=== PATIENT | male | born 1965 | race Caucasian/White ===

== ENCOUNTER 2016-11-04 07:07 | Day surgery (SDC) | payer OTHER ==
[~2016-11-04] VITALS: Ht 185.4 cm; Wt 140.7 kg
[~2016-11-04 07:07] MED LIST: CYMBALTA60 MG PO; FLUOXETINE HCL10 MG PO; HUMALOG100 UNIT/1 SC; LEVEMIR FL100 UNIT/1 SC; LYRICA75 MG PO; OXYCODONE-APAP1 EACH PO; REXULTI2 MG PO; TEMAZEPAM15 MG PO; TRAZODONE HCL150 MG PO
[2016-11-04 07:50] VITALS: BP 140/91
[2016-11-04 08:29] LABS: EOSINOPHIL (%) 2.3 % (0-5); EOSINOPHIL COUNT 0.2 K/uL (0-0.3); HEMATOCRIT 32.4 % (38.0-50.0); IMMATURE GRANULOCYTE (%) 0.3 % (0.0-0.7); IMMATURE GRANULOCYTE COUNT 0.2 K/uL; LYMPHOCYTE COUNT 1.3 K/uL (1.0-2.8); MCH 25.7 PG (29.0-34.0); MCHC 32.4 G/DL (30.0-36.0); MCV 79.4 FL (86-99); MEAN PLAT.VOLUME 9.5 uM^3 (9.0-12.4); MONOCYTE COUNT 0.7 K/uL (0-0.8); NEUTROPHIL (%) 70.7 % (45-76); NEUTROPHIL COUNT 5.3 K/uL (1.8-6.4); PLATELET COUNT 284 K/uL (156-360); RBC DIS.WIDTH-CV 14.1 % (11.8-14.6); RBC DIS.WIDTH-SD 39.5 % (39-53); RED BLOOD COUNT 4.08 M/uL (4.00-5.50); WHITE BLOOD COUNT 7.5 K/uL (4.1-10.2)
[2016-11-04 08:49] LABS: CHLORIDE 108 mEq/L (99-109); POTASSIUM 4.3 mEq/L (3.7-5.4); SODIUM 139 mEq/L (136-147)
[2016-11-04 08:51] LABS: GLUCOSE 87 mg/dL (70-99)
[2016-11-04 08:51] LABS: POINT-OF-CARE METER ID UU14174212
[2016-11-04 08:53] LABS: ANION GAP 9 MEQ/L (2-14); TOTAL BILIRUBIN 0.2 mg/dL (0.0-1.0)
[2016-11-04 08:55] LABS: GFR ESTIMATE (CALCULATED) 17 mL/min/
[2016-11-04 09:27] LABS: ALKALINE PHOSPHATASE 78 IU/L (3-129)
[2016-11-04 09:29] LABS: UREA NITROGEN (BUN) 45 mg/dL (9-23)
[2016-11-04 10:26] LABS: POINT-OF-CARE METER ID UU13113675
[2016-11-04 11:10] VITALS: BP 165/84
[2016-11-04 11:56] VITALS: BP 180/92
== END 2016-11-04 12:06 | disposition home or self-care (01) ==
LOC: SDC 07:07
PROVIDERS: Internal Medicine
DX: H43.12 Vitreous hemorrhage, left eye (principal); E11.3593 Type 2 diabetes mellitus with proliferative diabetic retinopathy without macular edema, bilateral; H33.42 Traction detachment of retina, left eye; E11.42 Type 2 diabetes mellitus with diabetic polyneuropathy; Z79.4 Long term (current) use of insulin; N18.9 Chronic kidney disease, unspecified; E11.22 Type 2 diabetes mellitus with diabetic chronic kidney disease; I12.9 Hypertensive chronic kidney disease with stage 1 through stage 4 chronic kidney disease, or unspecified chronic kidney disease
CPT/HCPCS: 80053; 82948; 85025; J0690; J2250; J2405; J3300

== ENCOUNTER 2017-06-09 07:28 | Day surgery (SDC) | payer OTHER ==
[~2017-06-09] VITALS: Ht 185.4 cm; Wt 140.7 kg
[~2017-06-09 07:28] MED LIST changes: +ADDERALL20 MG PO; +ATORVASTATIN CA20 MG PO; +GABAPENTIN400 MG PO; +METOPROLOL SUCC50 MG PO; +OLANZAPINE2.5 MG PO; +PLAVIX75 MG PO; +TRESIBA FL100 UNIT/1 SC
[2017-06-09 07:55] VITALS: BP 155/92
[2017-06-09 08:30] LABS: POINT-OF-CARE METER ID UU14174212
[2017-06-09 09:59] LABS: POINT-OF-CARE METER ID UU13113675
[2017-06-09 10:40] VITALS: BP 180/102
[2017-06-09 11:30] VITALS: BP 192/92
== END 2017-06-09 11:30 | disposition home or self-care (01) ==
LOC: SDC 07:28
PROVIDERS: Internal Medicine
DX: H43.12 Vitreous hemorrhage, left eye (principal); H33.22 Serous retinal detachment, left eye; I13.2 Hypertensive heart and chronic kidney disease with heart failure and with stage 5 chronic kidney disease, or end stage renal disease; I50.22 Chronic systolic (congestive) heart failure; E11.22 Type 2 diabetes mellitus with diabetic chronic kidney disease; N18.6 End stage renal disease; E11.21 Type 2 diabetes mellitus with diabetic nephropathy; G47.30 Sleep apnea, unspecified; Z86.73 Personal history of transient ischemic attack (TIA), and cerebral infarction without residual deficits; Z99.2 Dependence on renal dialysis; Z79.4 Long term (current) use of insulin; Z79.02 Long term (current) use of antithrombotics/antiplatelets
CPT/HCPCS: 82948; 87641; J0690; J2405; J3010; J3300

== ENCOUNTER 2017-06-15 10:32 | Emergency (ER) | payer OTHER ==
[~2017-06-15] VITALS: Ht 185.4 cm; Wt 139.5 kg
[2017-06-15 14:01] LABS: APPEARANCE CLOUDY-YELLOW; RED CELL COUNT 2000 /MM^3 (0-1); WHITE CELL COUNT 21528 /MM^3 (0-200.0)
[2017-06-15 14:11] LABS: MONONUCLEAR WBC'S 4 %; POLYNUCLEAR WBC'S 96 % (0-25); SYNOVIAL FLUID EOSINOPHILS 0 % (0-25)
[2017-06-15] MEDS ORDERED: PREDNISONE20 MG PO (14:49)
[2017-06-15] MEDS ORDERED: ROXICODONE5 MG PO (14:50)
[2017-06-15 15:15] VITALS: BP 120/77
== END 2017-06-15 15:16 | disposition home or self-care (01) ==
LOC: EME 10:32
PROVIDERS: Emergency Medicine
PROC: 0S9C3ZZ Drainage of Right Knee Joint, Percutaneous Approach (ICD-10-PCS; principal; 2017-06-15)
DX: M10.9 Gout, unspecified (principal); I12.9 Hypertensive chronic kidney disease with stage 1 through stage 4 chronic kidney disease, or unspecified chronic kidney disease; E11.22 Type 2 diabetes mellitus with diabetic chronic kidney disease; N18.9 Chronic kidney disease, unspecified; Z79.4 Long term (current) use of insulin; Z86.73 Personal history of transient ischemic attack (TIA), and cerebral infarction without residual deficits
CPT/HCPCS: 84157; 87205; 89051; 99281; 99284

== ENCOUNTER 2017-06-19 15:39 | Day surgery (SDC) | payer OTHER ==
[~2017-06-19 15:39] MED LIST changes: +PREDNISONE20 MG PO; +ROXICODONE5 MG PO
[2017-06-19 16:38] LABS: POINT-OF-CARE METER ID UU13113696
[2017-06-19 17:32] LABS: METH RESISTANT S AUREUS PCR NEGATIVE (NEGATIVE); PROBE CHECK PASS; SPECIMEN PROCESSING CONTROL PASS
== END 2017-06-19 17:55 | disposition home or self-care (01) ==
LOC: CATH 15:39
PROVIDERS: Surgery
PROC: B5131ZA Fluoroscopy of Right Jugular Veins using Low Osmolar Contrast, Guidance (ICD-10-PCS; principal; 2017-06-19)
PROC: 05PY03Z Removal of Infusion Device from Upper Vein, Open Approach (ICD-10-PCS; principal; 2017-06-19)
PROC: 05HM33Z Insertion of Infusion Device into Right Internal Jugular Vein, Percutaneous Approach (ICD-10-PCS; principal; 2017-06-19)
DX: T82.41XA Breakdown (mechanical) of vascular dialysis catheter, initial encounter (principal); I12.0 Hypertensive chronic kidney disease with stage 5 chronic kidney disease or end stage renal disease; E11.22 Type 2 diabetes mellitus with diabetic chronic kidney disease; N18.6 End stage renal disease; Z99.2 Dependence on renal dialysis; G47.30 Sleep apnea, unspecified; E78.00 Pure hypercholesterolemia, unspecified; Z86.73 Personal history of transient ischemic attack (TIA), and cerebral infarction without residual deficits
CPT/HCPCS: 82948; 87641; C1750; J0690; J1644; J2250; J3010; J7050; S0020

== ENCOUNTER 2017-06-26 11:58 | Day surgery (SDC) | payer OTHER ==
[2017-06-26 12:26] LABS: POINT-OF-CARE METER ID UU13113696
[2017-06-26 13:43] LABS: METH RESISTANT S AUREUS PCR NEGATIVE (NEGATIVE); PROBE CHECK PASS; SPECIMEN PROCESSING CONTROL PASS
== END 2017-06-26 14:10 | disposition home or self-care (01) ==
LOC: CATH 11:58 → SDC 07-02 11:24
PROVIDERS: Surgery
DX: T82.41XA Breakdown (mechanical) of vascular dialysis catheter, initial encounter (principal); N18.6 End stage renal disease; Z99.2 Dependence on renal dialysis
CPT/HCPCS: 82948; 87641; C1788; J0690; J1644; J2250; J3010; S0020

== ENCOUNTER → 2017-06-30 | Outpatient (CLI) | payer OTHER, MEDICARE | END | disposition home or self-care (01) | LOC: CDC | DX: Z01.810 Encounter for preprocedural cardiovascular examination (principal); I51.7 Cardiomegaly; R94.31 Abnormal electrocardiogram [ECG] [EKG] | CPT/HCPCS: 93000 ==

== ENCOUNTER 2017-07-02 11:17 | Day surgery (SDC) | payer OTHER ==
[~2017-07-02] VITALS: Ht 185.4 cm; Wt 140.1 kg
[2017-07-02 12:00] VITALS: BP 145/90
[2017-07-02 12:16] LABS: MCH 24.4 PG (29.0-34.0); MCHC 29.2 G/DL (30.0-36.0); MCV 83.3 FL (86-99); MEAN PLAT.VOLUME 10.3 uM^3 (9.0-12.4); PLATELET COUNT 225 K/uL (156-360); RBC DIS.WIDTH-CV 17.6 % (11.8-14.6); RBC DIS.WIDTH-SD 53.7 % (39-53); RED BLOOD COUNT 4.68 M/uL (4.00-5.50); WHITE BLOOD COUNT 9.7 K/uL (4.1-10.2)
[2017-07-02 12:35] LABS: ANION GAP 12 MEQ/L (2-14); CHLORIDE 99 MEQ/L (99-109); POTASSIUM 4.1 MEQ/L (3.7-5.4); SAMPLE HEMOLYSIS CHECK 0; SAMPLE ICTERIC CHECK 0; SAMPLE LIPEMIA CHECK 0; SODIUM 137 MEQ/L (136-147)
[2017-07-02 12:40] LABS: GFR ESTIMATE (CALCULATED) 10 mL/min/; GLUCOSE 212 mg/dL (70-99); UREA NITROGEN (BUN) 59 mg/dL (9-23)
[2017-07-02 15:52] LABS: POINT-OF-CARE METER ID UU13113675
[2017-07-02 16:23] VITALS: BP 139/82
[2017-07-02 17:00] VITALS: BP 160/90
== END 2017-07-02 17:12 | disposition home or self-care (01) ==
LOC: SDC 11:17
PROVIDERS: Surgery
DX: I12.0 Hypertensive chronic kidney disease with stage 5 chronic kidney disease or end stage renal disease (principal); E11.22 Type 2 diabetes mellitus with diabetic chronic kidney disease; N18.6 End stage renal disease; Z99.2 Dependence on renal dialysis; Z86.73 Personal history of transient ischemic attack (TIA), and cerebral infarction without residual deficits; E78.00 Pure hypercholesterolemia, unspecified; G47.33 Obstructive sleep apnea (adult) (pediatric); Z79.02 Long term (current) use of antithrombotics/antiplatelets; Z79.4 Long term (current) use of insulin
CPT/HCPCS: 80048; 82948; 85027; J0690; J1644; J2405; J2720; J3010

== ENCOUNTER 2017-07-12 22:13 | Emergency (ER) | payer OTHER ==
[~2017-07-12] VITALS: Ht 185.4 cm; Wt 138.6 kg
[2017-07-12 23:01] LABS: ADD MIUA? YES; BILIRUBIN NEGATIVE; BLOOD NEGATIVE; COLOR STRAW ((YELLOW)); GLUCOSE (STRIP) >=500; KETONES NEGATIVE; LEUKOCYTES NEGATIVE; NITRITE NEGATIVE; PROTEIN (STRIP) >=500; SPECIFIC GRAVITY 1.011 (1.000-1.030); UROBILINOGEN 0.2 MG/DL (0.2-1.0)
[2017-07-12 23:22] LABS: HEMATOCRIT 36.8 % (38.0-50.0); MCH 24.6 PG (29.0-34.0); MCHC 29.1 G/DL (30.0-36.0); MCV 84.6 FL (86-99); MEAN PLAT.VOLUME 9.9 uM^3 (9.0-12.4); PLATELET COUNT 232 K/uL (156-360); RBC DIS.WIDTH-CV 17.2 % (11.8-14.6); RBC DIS.WIDTH-SD 53.1 % (39-53); RED BLOOD COUNT 4.35 M/uL (4.00-5.50); WHITE BLOOD COUNT 6.1 K/uL (4.1-10.2)
[2017-07-12 23:32] LABS: CHLORIDE 106 mEq/L (99-109); POTASSIUM 4.5 mEq/L (3.7-5.4); SODIUM 141 mEq/L (136-147)
[2017-07-12 23:34] LABS: GLUCOSE 149 mg/dL (70-99)
[2017-07-12 23:35] LABS: ANION GAP 13 MEQ/L (2-14)
[2017-07-12 23:36] LABS: TOTAL BILIRUBIN 0.2 mg/dL (0.0-1.0)
[2017-07-12 23:37] LABS: ALKALINE PHOSPHATASE 81 IU/L (3-129)
[2017-07-12 23:38] LABS: RED BLOOD CELLS NONE SEEN /HPF (0-5); WHITE BLOOD CELLS NONE SEEN /HPF (0-5)
[2017-07-12 23:38] LABS: GFR ESTIMATE (CALCULATED) 7 mL/min/
[2017-07-12 23:39] LABS: UREA NITROGEN (BUN) 74 mg/dL (9-23)
[2017-07-12 23:39] LABS: BACTERIA RARE /HPF; CASTS NONE SEEN /LPF; CRYSTALS NONE SEEN; EPITHELIAL CELLS RARE /HPF; MUCUS NONE SEEN /LPF; UCUL ADDED? NO
[2017-07-13] MEDS ORDERED: DILAUDID2 MG PO (03:46)
[2017-07-13 04:18] VITALS: BP 164/98
== END 2017-07-13 04:20 | disposition home or self-care (01) ==
LOC: EME 22:13 → EXP 22:13
DX: R10.31 Right lower quadrant pain (principal); M25.551 Pain in right hip; N50.82 Scrotal pain; E11.9 Type 2 diabetes mellitus without complications; Z79.4 Long term (current) use of insulin; Z86.73 Personal history of transient ischemic attack (TIA), and cerebral infarction without residual deficits; Z88.8 Allergy status to other drugs, medicaments and biological substances
CPT/HCPCS: 72192; 73502; 76870; 80053; 81003; 85027; 99281; 99284; J2270; J3010

== ENCOUNTER 2017-07-16 11:52 | Day surgery (SDC) | payer OTHER ==
[~2017-07-16 11:52] MED LIST changes: +DILAUDID2 MG PO
[2017-07-16 12:28] LABS: POINT-OF-CARE METER ID UU13113696
== END 2017-07-16 15:50 | disposition home or self-care (01) ==
LOC: CATH 11:52
PROVIDERS: Surgery
DX: T82.41XA Breakdown (mechanical) of vascular dialysis catheter, initial encounter (principal); Y73.1 Therapeutic (nonsurgical) and rehabilitative gastroenterology and urology devices associated with adverse incidents; N18.6 End stage renal disease; Z99.2 Dependence on renal dialysis
CPT/HCPCS: 82948; C1750; C1894; J0690; J1644; J2250; J3010; S0020

== ENCOUNTER 2017-08-08 08:24 | Day surgery (SDC) | payer OTHER ==
[2017-08-08] MEDS ORDERED: AMBIEN10 MG PO (09:15)
[2017-08-08 09:23] LABS: POINT-OF-CARE METER ID UU13113696
[2017-08-08 09:59] LABS: POINT-OF-CARE METER ID UU13113696; POINT-OF-CARE USER ID HMLCJM07
[2017-08-08 10:17] LABS: POINT-OF-CARE METER ID UU13113696; POINT-OF-CARE USER ID HMLCJM07
[2017-08-08 10:37] LABS: METH RESISTANT S AUREUS PCR NEGATIVE (NEGATIVE)
[2017-08-08 10:39] LABS: PROBE CHECK PASS; SPECIMEN PROCESSING CONTROL PASS
[2017-08-08 10:52] LABS: POINT-OF-CARE METER ID UU13113819; POINT-OF-CARE USER ID 515036437
== END 2017-08-08 11:40 | disposition home or self-care (01) ==
LOC: CATH 08:24
PROVIDERS: Surgery
DX: T82.858A Stenosis of other vascular prosthetic devices, implants and grafts, initial encounter (principal); I12.0 Hypertensive chronic kidney disease with stage 5 chronic kidney disease or end stage renal disease; E11.22 Type 2 diabetes mellitus with diabetic chronic kidney disease; N18.6 End stage renal disease; Z99.2 Dependence on renal dialysis; E78.5 Hyperlipidemia, unspecified; Z86.73 Personal history of transient ischemic attack (TIA), and cerebral infarction without residual deficits; G47.30 Sleep apnea, unspecified; Y83.2 Surgical operation with anastomosis, bypass or graft as the cause of abnormal reaction of the patient, or of later complication, without mention of misadventure at the time of the procedure
CPT/HCPCS: 82948; 87641; C1725; C1769; C1894; J1644; J2250; J3010

== ENCOUNTER 2017-08-20 23:19 | Observation (INO) | payer OTHER ==
[~2017-08-20] VITALS: Ht 185.4 cm; Wt 144.7 kg
[~2017-08-20 23:19] MED LIST changes: +ADDERALL XR 2020 MG PO; -ADDERALL20 MG PO; +AMBIEN10 MG PO; -FLUOXETINE HCL10 MG PO; +FLUOXETINE HCL40 MG PO; -TRESIBA FL100 UNIT/1 SC; +TRESIBA FL200 UNIT/1 SC
[2017-08-21 00:43] LABS: EOSINOPHIL (%) 1.8 % (0-5); EOSINOPHIL COUNT 0.2 K/uL (0-0.3); HEMATOCRIT 36.4 % (38.0-50.0); IMMATURE GRANULOCYTE (%) 0.6 % (0.0-0.7); IMMATURE GRANULOCYTE COUNT 0.1 K/uL; INSTRUMENT ABS NEUTROPHIL CT 8.5 K/uL; LYMPHOCYTE COUNT 0.9 K/uL (1.0-2.8); MCH 24.3 PG (29.0-34.0); MCHC 29.4 G/DL (30.0-36.0); MCV 82.5 FL (86-99); NEUTROPHIL (%) 80.3 % (45-76); NEUTROPHIL COUNT 8.5 K/uL (1.8-6.4); PLATELET COUNT 220 K/uL (156-360); RBC DIS.WIDTH-CV 17.3 % (11.8-14.6); RBC DIS.WIDTH-SD 52.6 % (39-53); RED BLOOD COUNT 4.41 M/uL (4.00-5.50); WHITE BLOOD COUNT 10.6 K/uL (4.1-10.2)
[2017-08-21 00:53] LABS: CHLORIDE 100 mEq/L (99-109); POTASSIUM 4.4 mEq/L (3.7-5.4); SODIUM 136 mEq/L (136-147)
[2017-08-21 00:55] LABS: GLUCOSE 129 mg/dL (70-99)
[2017-08-21 00:56] LABS: ANION GAP 13 MEQ/L (2-14)
[2017-08-21 00:57] LABS: TOTAL BILIRUBIN 0.4 mg/dL (0.0-1.0)
[2017-08-21 00:58] LABS: ALKALINE PHOSPHATASE 88 IU/L (3-129)
[2017-08-21 00:59] LABS: GFR ESTIMATE (CALCULATED) 7 mL/min/
[2017-08-21 01:00] LABS: UREA NITROGEN (BUN) 57 mg/dL (9-23)
[2017-08-21 01:02] LABS: CREATINE KINASE 622 IU/L (1-294); LIPASE 14 U/L (1.0-51.0); TOTAL CK 622 IU/L (1-294)
[2017-08-21 01:09] LABS: CK-MB 6.3 ng/mL (0.0-4.9)
[2017-08-21 01:09] LABS: ADD MIUA? YES; BILIRUBIN NEGATIVE; BLOOD NEGATIVE; COLOR STRAW ((YELLOW)); GLUCOSE (STRIP) 150; KETONES NEGATIVE; LEUKOCYTES NEGATIVE; NITRITE NEGATIVE; PROTEIN (STRIP) >=500; SPECIFIC GRAVITY 1.012 (1.000-1.030); UROBILINOGEN 0.2 MG/DL (0.2-1.0)
[2017-08-21 01:10] LABS: TROP-I INTERPRETATION NEGATIVE; TROPONIN-I 0.11 ng/mL (0.0-0.30)
[2017-08-21 01:17] LABS: BACTERIA NONE SEEN /HPF; EPITHELIAL CELLS NONE SEEN /HPF; MUCUS NONE SEEN /LPF; WHITE BLOOD CELLS 0-5 /HPF (0-5)
[2017-08-21] MEDS ORDERED: CALCIUM ACETAT667 MG PO (01:37)
[2017-08-21] MEDS ORDERED: APRESOLINE25 MG PO (01:37)
[2017-08-21] MEDS ORDERED: HYDROCODON-ACE1 EAC9 PO (01:37)
[2017-08-21 04:51] VITALS: BP 163/94
[2017-08-21 07:13] VITALS: BP 135/86
[2017-08-21 07:16] LABS: TROP-I INTERPRETATION NEGATIVE; TROPONIN-I 0.09 ng/mL (0.0-0.30)
[2017-08-21 07:21] LABS: CREATINE KINASE 451 IU/L (1-294); HDL CHOLESTEROL 43 MG/DL (Desirable>=40); LDL CHOLESTEROL 80 mg/dL (Desirable<100); NON-HDL CHOLESTEROL 98 mg/dL (Desirable<160); TOTAL CHOLESTEROL 141 mg/dL (Desirable<200); TRIGLYCERIDES 92 MG/DL (Normal: <150)
[2017-08-21 08:04] LABS: POINT-OF-CARE METER ID UU13113831
[2017-08-21 13:00] VITALS: BP 137/89
[2017-08-21 13:02] LABS: POINT-OF-CARE METER ID UU13113700
[2017-08-21 15:27] LABS: TROP-I INTERPRETATION NEGATIVE
[2017-08-21 16:10] LABS: TROPONIN-I 0.08 ng/mL (0.0-0.30)
[2017-08-21 16:34] VITALS: BP 146/82
[2017-08-21 17:00] LABS: POINT-OF-CARE METER ID UU13113700
[2017-08-21 20:00] VITALS: BP 137/82
[2017-08-21 21:28] LABS: POINT-OF-CARE METER ID UU13113700
[2017-08-21 23:31] VITALS: BP 134/76
[2017-08-22 03:37] VITALS: BP 127/79
[2017-08-22 08:40] LABS: POINT-OF-CARE METER ID UU14162513
[2017-08-22 09:26] VITALS: BP 127/76
[2017-08-22 09:49] LABS: HBSG INDEX 0.13
[2017-08-22 11:22] VITALS: BP 134/80
[2017-08-22 12:54] LABS: POINT-OF-CARE METER ID UU14162513
[2017-08-22] MEDS ORDERED: GABAPENTIN400 MG PO (14:58)
[2017-08-22] MEDS ORDERED: CAPSAICIN57 GM TP (14:58)
[2017-08-24 21:41] LABS: POINT-OF-CARE METER ID UU14162513
== END 2017-08-22 16:13 | disposition home or self-care (01) ==
LOC: EME 23:19 → EDOF 08-21 03:07 → 5WEST 08-21 03:07 → ENRESERV 08-21 03:08 → 5WEST 08-21 04:32 → ENPENDDIS 08-22 → 5WEST 08-22 16:13
PROVIDERS: Internal Medicine; Internal Medicine Nephrology; Physician Assistant
PROC: 5A1D70Z Performance of Urinary Filtration, Intermittent, Less than 6 Hours Per Day (ICD-10-PCS; principal; 2017-08-21)
DX: R94.31 Abnormal electrocardiogram [ECG] [EKG] (principal); E11.40 Type 2 diabetes mellitus with diabetic neuropathy, unspecified; G89.4 Chronic pain syndrome; I12.0 Hypertensive chronic kidney disease with stage 5 chronic kidney disease or end stage renal disease; E11.22 Type 2 diabetes mellitus with diabetic chronic kidney disease; N18.6 End stage renal disease; Z99.2 Dependence on renal dialysis; D63.1 Anemia in chronic kidney disease; E78.5 Hyperlipidemia, unspecified; E66.01 Morbid (severe) obesity due to excess calories; Z79.891 Long term (current) use of opiate analgesic; Z79.4 Long term (current) use of insulin; Z88.8 Allergy status to other drugs, medicaments and biological substances
CPT/HCPCS: 71020; 80053; 80061; 81003; 82550; 82550 91; 82553; 82948; 83690; 84484; 85025; 87340; 87502; 87651 90; 93005; 93306; 99281; 99285; G0257; G0378; J1644; J2270; J3010

== ENCOUNTER → 2017-10-08 | Outpatient (CLI) | payer OTHER ==
[~2017-10-08] MED LIST changes: +APRESOLINE25 MG PO; +CALCIUM ACETAT667 MG PO; +CAPSAICIN57 GM TP; +HYDROCODON-ACE1 EAC9 PO
== END | disposition home or self-care (01) ==
LOC: AMB 09-26 08:30
PROC: 05PYX3Z Removal of Infusion Device from Upper Vein, External Approach (ICD-10-PCS; principal; 2017-10-08)
DX: N18.6 End stage renal disease (principal); Z99.2 Dependence on renal dialysis

== ENCOUNTER 2017-10-19 04:03 | Observation (INO) | payer OTHER ==
[~2017-10-19] VITALS: Ht 185.4 cm; Wt 138.1 kg
[2017-10-19 05:36] LABS: HEMATOCRIT 32.3 % (38.0-50.0); HEMOGLOBIN 10.2 G/DL (12.5-16.6); MCH 26.8 PG (29.0-34.0); MCHC 31.6 G/DL (30.0-36.0); PLATELET COUNT 270 K/uL (156-360); RBC DIS.WIDTH-CV 16.7 % (11.8-14.6); RBC DIS.WIDTH-SD 51.7 % (39-53); WHITE BLOOD COUNT 7.5 K/uL (4.1-10.2)
[2017-10-19 05:38] LABS: CHLORIDE 98 mEq/L (99-109); POTASSIUM 3.8 mEq/L (3.7-5.4); SODIUM 138 mEq/L (136-147)
[2017-10-19 05:43] LABS: GLUCOSE 264 mg/dL (70-99)
[2017-10-19 05:44] LABS: GFR ESTIMATE (CALCULATED) 6 mL/min/ (58.99-99999)
[2017-10-19 05:52] LABS: TROP-I INTERPRETATION NEGATIVE; TROPONIN-I 0.06 ng/mL (0.0-0.30)
[2017-10-19 05:53] LABS: CREATININE 9.4 mg/dL (0.6-1.3); UREA NITROGEN (BUN) 55 mg/dL (9-23)
[2017-10-19 08:09] VITALS: BP 175/105
[2017-10-19 11:33] VITALS: BP 133/83
[2017-10-19] MEDS ORDERED: EFFEXOR37.5 MG PO (11:52)
[2017-10-19] MEDS ORDERED: PROZAC40 MG PO (11:53)
[2017-10-19] MEDS ORDERED: LASIX80 MG PO (11:56)
[2017-10-19 13:04] LABS: TROP-I INTERPRETATION NEGATIVE; TROPONIN-I 0.07 ng/mL (0.0-0.30)
[2017-10-19 13:22] LABS: HDL CHOLESTEROL 28 MG/DL (Desirable>=40); LDL CHOLESTEROL 87 mg/dL (Desirable<100); NON-HDL CHOLESTEROL 120 mg/dL (Desirable<160); TOTAL CHOLESTEROL 148 mg/dL (Desirable<200); TRIGLYCERIDES 164 MG/DL (Normal: <150)
[2017-10-19 16:41] VITALS: BP 136/70
[2017-10-19 18:18] LABS: TROP-I INTERPRETATION NEGATIVE; TROPONIN-I 0.06 ng/mL (0.0-0.30)
[2017-10-19 20:00] VITALS: BP 132/71
[2017-10-19 23:41] VITALS: BP 122/68
[2017-10-20 04:00] VITALS: BP 148/78
[2017-10-20 07:50] VITALS: BP 136/77
[2017-10-20 09:39] LABS: HEMATOCRIT 33.9 % (38.0-50.0); HEMOGLOBIN 10.3 G/DL (12.5-16.6); MCH 26.6 PG (29.0-34.0); MCHC 30.4 G/DL (30.0-36.0); MCV 87.6 FL (86-99); PLATELET COUNT 255 K/uL (156-360); RBC DIS.WIDTH-CV 17.1 % (11.8-14.6); RBC DIS.WIDTH-SD 53.9 % (39-53); RED BLOOD COUNT 3.87 M/uL (4.00-5.50); WHITE BLOOD COUNT 7.7 K/uL (4.1-10.2)
[2017-10-20 09:56] LABS: HEMOGLOBIN A1c (GLYCOHEMOGLOB) 6.8 % (Below 5.7)
[2017-10-20 10:25] LABS: CHLORIDE 98 MEQ/L (99-109); GFR ESTIMATE (CALCULATED) 6 mL/min/ (58.99-99999); SODIUM 138 MEQ/L (136-147); UREA NITROGEN (BUN) 70 mg/dL (9-23)
[2017-10-20 10:26] LABS: GLUCOSE 98 mg/dL (70-99); POTASSIUM 4.7 MEQ/L (3.7-5.4)
[2017-10-20 12:16] VITALS: BP 167/78
[2017-10-20] MEDS ORDERED: GABAPENTIN400 MG PO (13:52)
[2017-10-20] MEDS ORDERED: TRAMADOL HCL50 MG PO (13:52)
== END 2017-10-20 20:58 | disposition home or self-care (01) ==
LOC: EME 04:03 → 5WEST 05:56 → EDOF 05:56 → ENRESERV 05:59 → 5WEST 07:25
PROVIDERS: Emergency Medicine; Hospitalist; Physician Assistant Medical
PROC: 5A1D70Z Performance of Urinary Filtration, Intermittent, Less than 6 Hours Per Day (ICD-10-PCS; principal; 2017-10-20)
DX: R07.89 Other chest pain (principal); I13.2 Hypertensive heart and chronic kidney disease with heart failure and with stage 5 chronic kidney disease, or end stage renal disease; I50.9 Heart failure, unspecified; N18.6 End stage renal disease; Z99.2 Dependence on renal dialysis; E11.22 Type 2 diabetes mellitus with diabetic chronic kidney disease; D63.1 Anemia in chronic kidney disease; G89.4 Chronic pain syndrome; G47.33 Obstructive sleep apnea (adult) (pediatric); Z79.4 Long term (current) use of insulin; E78.5 Hyperlipidemia, unspecified; Z91.19 Patient's noncompliance with other medical treatment and regimen; E11.49 Type 2 diabetes mellitus with other diabetic neurological complication; Z88.8 Allergy status to other drugs, medicaments and biological substances; Z79.82 Long term (current) use of aspirin; E66.01 Morbid (severe) obesity due to excess calories; Z68.41 Body mass index [BMI] 40.0-44.9, adult
CPT/HCPCS: 71046; 80048; 80061; 82948; 83036; 83880; 84484; 85027; 93005; G0257; G0378; J1644; J1815; J2270; J2405

== ENCOUNTER 2017-11-08 03:49 | Inpatient (IN) | payer OTHER ==
[~2017-11-08] VITALS: Ht 185.4 cm; Wt 144.1 kg
[~2017-11-08 03:49] MED LIST changes: +EFFEXOR37.5 MG PO; +LASIX80 MG PO; +PROZAC40 MG PO; +TRAMADOL HCL50 MG PO
[2017-11-08 04:30] LABS: HEMATOCRIT 28.8 % (38.0-50.0); HEMOGLOBIN 9.1 G/DL (12.5-16.6); MCH 27.2 PG (29.0-34.0); MCHC 31.6 G/DL (30.0-36.0); PLATELET COUNT 275 K/uL (156-360); RBC DIS.WIDTH-CV 16.1 % (11.8-14.6); RBC DIS.WIDTH-SD 49.8 % (39-53); RED BLOOD COUNT 3.35 M/uL (4.00-5.50); WHITE BLOOD COUNT 7.9 K/uL (4.1-10.2)
[2017-11-08 04:40] LABS: CHLORIDE 102 mEq/L (99-109); POTASSIUM 3.4 mEq/L (3.7-5.4); SODIUM 137 mEq/L (136-147)
[2017-11-08 04:42] LABS: GLUCOSE 134 mg/dL (70-99)
[2017-11-08 04:46] LABS: CREATININE 9.7 mg/dL (0.6-1.3); GFR ESTIMATE (CALCULATED) 6 mL/min/ (58.99-99999); UREA NITROGEN (BUN) 69 mg/dL (9-23)
[2017-11-08 04:51] LABS: TROP-I INTERPRETATION NEGATIVE
[2017-11-08 07:36] LABS: TROP-I INTERPRETATION NEGATIVE; TROPONIN-I 0.08 ng/mL (0.0-0.30)
[2017-11-08 09:22] LABS: MAGNESIUM 2.4 mg/dL (1.3-2.7)
[2017-11-08] MEDS ORDERED: ROPINIROLE HC0.25 MG PO (11:07)
[2017-11-08] MEDS ORDERED: VALSARTAN320 MG PO (11:08)
[2017-11-08 18:00] VITALS: BP 135/81
[2017-11-08 20:08] VITALS: BP 124/69
[2017-11-08 23:55] VITALS: BP 132/75
[2017-11-09 04:00] VITALS: BP 147/83
[2017-11-09 05:45] LABS: HEMATOCRIT 32.3 % (38.0-50.0); MCH 27.2 PG (29.0-34.0); MCV 87.8 FL (86-99); PLATELET COUNT 329 K/uL (156-360); RBC DIS.WIDTH-CV 16.1 % (11.8-14.6); RBC DIS.WIDTH-SD 51.4 % (39-53); RED BLOOD COUNT 3.68 M/uL (4.00-5.50); WHITE BLOOD COUNT 7.7 K/uL (4.1-10.2)
[2017-11-09 06:06] LABS: CHLORIDE 98 MEQ/L (99-109); CREATININE 7.3 MG/DL (0.6-1.3); GFR ESTIMATE (CALCULATED) 10 mL/min/ (58.99-99999); GLUCOSE 43 mg/dL (70-99); POTASSIUM 3.4 MEQ/L (3.7-5.4); SODIUM 140 MEQ/L (136-147); UREA NITROGEN (BUN) 41 mg/dL (9-23)
[2017-11-09 08:15] VITALS: BP 163/103
[2017-11-09 11:30] VITALS: BP 135/87
[2017-11-09 15:29] VITALS: BP 119/71
[2017-11-09 20:00] VITALS: BP 128/71
[2017-11-10 01:19] VITALS: BP 115/71
[2017-11-10 04:54] VITALS: BP 117/70
[2017-11-10 05:40] LABS: BASOPHIL (%) 0.4 % (0-1); EOSINOPHIL (%) 4.1 % (0-5); EOSINOPHIL COUNT 0.3 K/uL (0-0.3); HEMATOCRIT 29.3 % (38.0-50.0); HEMOGLOBIN 9.1 G/DL (12.5-16.6); IMMATURE GRANULOCYTE (%) 0.4 % (0.0-0.7); LYMPHOCYTE (%) 20.5 % (15-42); LYMPHOCYTE COUNT 1.5 K/uL (1.0-2.8); MCH 26.7 PG (29.0-34.0); MCHC 31.1 G/DL (30.0-36.0); MCV 85.9 FL (86-99); MONOCYTE (%) 10.3 % (3-12); MONOCYTE COUNT 0.7 K/uL (0-0.8); NEUTROPHIL (%) 64.3 % (45-76); NEUTROPHIL COUNT 4.6 K/uL (1.8-6.4); PLATELET COUNT 291 K/uL (156-360); RBC DIS.WIDTH-CV 16.1 % (11.8-14.6); RBC DIS.WIDTH-SD 50.2 % (39-53); RED BLOOD COUNT 3.41 M/uL (4.00-5.50); WHITE BLOOD COUNT 7.1 K/uL (4.1-10.2)
[2017-11-10 06:05] LABS: CHLORIDE 98 MEQ/L (99-109); CREATININE 8.7 MG/DL (0.6-1.3); GFR ESTIMATE (CALCULATED) 8 mL/min/ (58.99-99999); GLUCOSE 67 mg/dL (70-99); POTASSIUM 3.9 MEQ/L (3.7-5.4); SODIUM 137 MEQ/L (136-147); UREA NITROGEN (BUN) 50 mg/dL (9-23)
[2017-11-10 08:08] VITALS: BP 126/75
[2017-11-10 12:15] VITALS: BP 116/70
[2017-11-10 15:50] VITALS: BP 115/65
[2017-11-10 19:34] VITALS: BP 122/76
[2017-11-11 00:54] VITALS: BP 115/68
[2017-11-11 03:33] VITALS: BP 126/77
[2017-11-11 05:36] LABS: HEMATOCRIT 30.6 % (38.0-50.0); HEMOGLOBIN 9.2 G/DL (12.5-16.6); MCH 26.4 PG (29.0-34.0); MCHC 30.1 G/DL (30.0-36.0); MCV 87.7 FL (86-99); PLATELET COUNT 280 K/uL (156-360); RBC DIS.WIDTH-CV 16.2 % (11.8-14.6); RBC DIS.WIDTH-SD 51.7 % (39-53); RED BLOOD COUNT 3.49 M/uL (4.00-5.50); WHITE BLOOD COUNT 6.4 K/uL (4.1-10.2)
[2017-11-11 06:09] LABS: ALBUMIN 3.3 G/DL (3.2-4.8); CHLORIDE 98 MEQ/L (99-109); GFR ESTIMATE (CALCULATED) 7 mL/min/ (58.99-99999); PHOSPHORUS 7.4 mg/dL (2.5-4.9); POTASSIUM 4.2 MEQ/L (3.7-5.4); SODIUM 137 MEQ/L (136-147); UREA NITROGEN (BUN) 62 mg/dL (9-23)
[2017-11-11 06:11] LABS: GLUCOSE 107 mg/dL (70-99)
[2017-11-11 16:59] VITALS: BP 127/82
[2017-11-11 23:49] VITALS: BP 144/94
[2017-11-12 07:24] LABS: BASOPHIL (%) 0.5 % (0-1); EOSINOPHIL (%) 4.5 % (0-5); EOSINOPHIL COUNT 0.3 K/uL (0-0.3); HEMATOCRIT 32.4 % (38.0-50.0); HEMOGLOBIN 10.2 G/DL (12.5-16.6); IMMATURE GRANULOCYTE (%) 0.5 % (0.0-0.7); LYMPHOCYTE (%) 18.9 % (15-42); LYMPHOCYTE COUNT 1.1 K/uL (1.0-2.8); MCH 27.3 PG (29.0-34.0); MCHC 31.5 G/DL (30.0-36.0); MCV 86.9 FL (86-99); MONOCYTE (%) 15.3 % (3-12); MONOCYTE COUNT 0.9 K/uL (0-0.8); NEUTROPHIL (%) 60.3 % (45-76); NEUTROPHIL COUNT 3.5 K/uL (1.8-6.4); PLATELET COUNT 256 K/uL (156-360); RBC DIS.WIDTH-CV 15.9 % (11.8-14.6); RBC DIS.WIDTH-SD 50.3 % (39-53); RED BLOOD COUNT 3.73 M/uL (4.00-5.50); WHITE BLOOD COUNT 5.8 K/uL (4.1-10.2)
[2017-11-12 07:49] LABS: CHLORIDE 94 MEQ/L (99-109); GFR ESTIMATE (CALCULATED) 10 mL/min/ (58.99-99999); GLUCOSE 97 mg/dL (70-99); MAGNESIUM 2.4 mg/dl (1.3-2.7); POTASSIUM 3.9 MEQ/L (3.7-5.4); SODIUM 133 MEQ/L (136-147); UREA NITROGEN (BUN) 36 mg/dL (9-23)
[2017-11-12 07:50] LABS: CREATININE 7.3 MG/DL (0.6-1.3)
[2017-11-12 09:01] VITALS: BP 122/71
[2017-11-12] MEDS ORDERED: CALCIUM ACETAT667 M2 PO (09:49)
[2017-11-12] MEDS ORDERED: LEVEMIR FL100 UNIT/1 SC (09:49)
[2017-11-12] MEDS ORDERED: [UNRECOGNIZED DRUG - OTHER] PO (10:54)
[2017-11-12] MEDS ORDERED: PEPCID40 MG PO (10:54)
[2017-11-12] MEDS ORDERED: PERCOCET 5/31 TABLET PO (11:24)
[2017-11-12] MEDS ORDERED: TRESIBA FL100 UNIT/1 SC (11:40)
== END 2017-11-12 11:45 | disposition home or self-care (01) | DRG 291 ==
LOC: EME 03:49 → 5SOUTH 08:16 → 4EAST 08:16 → EDOF 08:16 → ENRESERV 08:18 → EDOF 08:36 → ENRESERV 14:51 → 4EAST 17:25 → ENRESERV 11-10 12:23 → 5SOUTH 11-10 19:21
PROVIDERS: Emergency Medicine Emergency Medical Services; Internal Medicine; Physician Assistant; Student in an Organized Health Care Education/Training Program
PROC: 5A1D70Z Performance of Urinary Filtration, Intermittent, Less than 6 Hours Per Day (ICD-10-PCS; principal; 2017-11-08)
DX: I13.2 Hypertensive heart and chronic kidney disease with heart failure and with stage 5 chronic kidney disease, or end stage renal disease (principal); N18.6 End stage renal disease; Z68.41 Body mass index [BMI] 40.0-44.9, adult; I50.9 Heart failure, unspecified; E11.49 Type 2 diabetes mellitus with other diabetic neurological complication; E11.65 Type 2 diabetes mellitus with hyperglycemia; E11.649 Type 2 diabetes mellitus with hypoglycemia without coma; E11.40 Type 2 diabetes mellitus with diabetic neuropathy, unspecified; I27.20 Pulmonary hypertension, unspecified; E87.79 Other fluid overload; G47.33 Obstructive sleep apnea (adult) (pediatric); E78.5 Hyperlipidemia, unspecified; K21.9 Gastro-esophageal reflux disease without esophagitis; K59.00 Constipation, unspecified; E66.01 Morbid (severe) obesity due to excess calories; E11.22 Type 2 diabetes mellitus with diabetic chronic kidney disease; D63.1 Anemia in chronic kidney disease; I34.0 Nonrheumatic mitral (valve) insufficiency; I36.1 Nonrheumatic tricuspid (valve) insufficiency; Z91.15 Patient's noncompliance with renal dialysis; Z79.4 Long term (current) use of insulin; Z99.2 Dependence on renal dialysis; Z86.73 Personal history of transient ischemic attack (TIA), and cerebral infarction without residual deficits
CPT/HCPCS: 71046; 71275; 80048; 80069; 82948; 83735; 83880; 84484; 85025; 85027; 85379; 85610; 85730; 93005; 93306; 99281; 99285; J1270; J1644; J1756; J1940; J2270; J7040

== ENCOUNTER 2018-01-02 16:41 | Emergency (ER) | payer OTHER ==
[~2018-01-02] VITALS: Ht 185.4 cm; Wt 136.8 kg
[~2018-01-02 16:41] MED LIST changes: +CALCIUM ACETAT667 M2 PO; +PEPCID40 MG PO; +PERCOCET 5/31 TABLET PO; +ROPINIROLE HC0.25 MG PO; +TRESIBA FL100 UNIT/1 SC; +VALSARTAN320 MG PO; +[UNRECOGNIZED DRUG - OTHER] PO
[2018-01-02] MEDS ORDERED: NAPROSYN500 MG PO (17:37)
[2018-01-02 18:04] VITALS: BP 155/102
== END 2018-01-02 18:14 | disposition home or self-care (01) ==
LOC: EME 16:41
DX: S39.011A Strain of muscle, fascia and tendon of abdomen, initial encounter (principal); G89.29 Other chronic pain; E11.22 Type 2 diabetes mellitus with diabetic chronic kidney disease; I12.0 Hypertensive chronic kidney disease with stage 5 chronic kidney disease or end stage renal disease; N18.6 End stage renal disease; Z99.2 Dependence on renal dialysis; F32.9 Major depressive disorder, single episode, unspecified; Z86.73 Personal history of transient ischemic attack (TIA), and cerebral infarction without residual deficits; Z88.8 Allergy status to other drugs, medicaments and biological substances; F41.9 Anxiety disorder, unspecified
CPT/HCPCS: 99281; 99285

== ENCOUNTER 2018-01-09 14:26 | Day surgery (SDC) | payer OTHER ==
[~2018-01-09] VITALS: Ht 185.4 cm; Wt 136.0 kg
[~2018-01-09 14:26] MED LIST changes: +NAPROSYN500 MG PO
== END 2018-01-09 16:10 | disposition home or self-care (01) ==
LOC: CATH 14:26
PROVIDERS: Surgery
DX: T82.858A Stenosis of other vascular prosthetic devices, implants and grafts, initial encounter (principal); I12.0 Hypertensive chronic kidney disease with stage 5 chronic kidney disease or end stage renal disease; E11.22 Type 2 diabetes mellitus with diabetic chronic kidney disease; Z99.2 Dependence on renal dialysis; G47.30 Sleep apnea, unspecified; Z86.73 Personal history of transient ischemic attack (TIA), and cerebral infarction without residual deficits; E78.5 Hyperlipidemia, unspecified; Z79.4 Long term (current) use of insulin; Z79.02 Long term (current) use of antithrombotics/antiplatelets; Z88.8 Allergy status to other drugs, medicaments and biological substances; Y83.2 Surgical operation with anastomosis, bypass or graft as the cause of abnormal reaction of the patient, or of later complication, without mention of misadventure at the time of the procedure
CPT/HCPCS: 82948; 87641; C1725; C1769; C1894; J1644; J2250; J3010

== ENCOUNTER 2018-01-26 11:50 | Emergency (ER) | payer OTHER ==
[~2018-01-26] VITALS: Ht 185.4 cm; Wt 137.2 kg
[2018-01-26] MEDS ORDERED: GABAPENTIN300 MG PO (14:02)
[2018-01-26 18:11] LABS: CHLORIDE 98 MEQ/L (99-109); CREATININE 11.5 MG/DL (0.6-1.3); GFR ESTIMATE (CALCULATED) 6 mL/min/ (58.99-99999); GLUCOSE 91 mg/dL (70-99); POTASSIUM 3.8 MEQ/L (3.7-5.4); SODIUM 135 MEQ/L (136-147); UREA NITROGEN (BUN) 69 mg/dL (9-23)
[2018-01-26] MEDS ORDERED: PERCOCET 5/31 TABLET PO (20:17)
[2018-01-26 20:51] VITALS: BP 175/99
== END 2018-01-26 21:01 | disposition home or self-care (01) ==
LOC: EME 11:50
PROVIDERS: Emergency Medicine
DX: E11.40 Type 2 diabetes mellitus with diabetic neuropathy, unspecified (principal); G47.30 Sleep apnea, unspecified; Z86.73 Personal history of transient ischemic attack (TIA), and cerebral infarction without residual deficits; Z99.2 Dependence on renal dialysis; Z88.6 Allergy status to analgesic agent; Z88.8 Allergy status to other drugs, medicaments and biological substances
CPT/HCPCS: 80048; 99281; 99285; G8978 GP CI; G8979 GP CH; G8980 GP CI; J1885

== ENCOUNTER 2018-03-09 23:47 | Observation (INO) | payer OTHER ==
[~2018-03-09] VITALS: Ht 185.4 cm; Wt 140.8 kg
[~2018-03-09 23:47] MED LIST changes: +GABAPENTIN300 MG PO
[2018-03-10 00:18] LABS: HEMATOCRIT 28.2 % (38.0-50.0); MCH 27.4 PG (29.0-34.0); MCHC 31.9 G/DL (30.0-36.0); PLATELET COUNT 222 K/uL (156-360); RBC DIS.WIDTH-CV 16.5 % (11.8-14.6); RBC DIS.WIDTH-SD 51.8 % (39-53); RED BLOOD COUNT 3.28 M/uL (4.00-5.50); WHITE BLOOD COUNT 6.3 K/uL (4.1-10.2)
[2018-03-10 00:43] LABS: CHLORIDE 98 mEq/L (99-109); POTASSIUM 4.2 mEq/L (3.7-5.4); SODIUM 136 mEq/L (136-147)
[2018-03-10 00:44] LABS: GLUCOSE 122 mg/dL (70-99)
[2018-03-10 00:48] LABS: CREATININE 10.8 mg/dL (0.6-1.3); GFR ESTIMATE (CALCULATED) 6 mL/min/ (58.99-99999)
[2018-03-10 00:49] LABS: UREA NITROGEN (BUN) 73 mg/dL (9-23)
[2018-03-10 00:51] LABS: TROP-I INTERPRETATION NEGATIVE; TROPONIN-I 0.23 ng/mL (0.0-0.30)
[2018-03-10] MEDS ORDERED: OXYCODONE HCL20 M1 PO (02:21)
[2018-03-10] MEDS ORDERED: RENA-VITE RX T1 EACH PO (02:23)
[2018-03-10] MEDS ORDERED: CALCIUM ACETAT667 MG PO (02:24)
[2018-03-10] MEDS ORDERED: CALCIUM ACETAT667 M2 PO (02:28)
[2018-03-10 05:17] VITALS: BP 186/101
[2018-03-10 06:32] VITALS: BP 182/103
[2018-03-10 06:41] LABS: TROP-I INTERPRETATION NEGATIVE; TROPONIN-I 0.21 ng/mL (0.0-0.30)
[2018-03-10 09:43] VITALS: BP 157/92
[2018-03-10 12:02] VITALS: BP 167/78
[2018-03-10 12:28] LABS: TROP-I INTERPRETATION NEGATIVE; TROPONIN-I 0.17 ng/mL (0.0-0.30)
[2018-03-10 19:30] VITALS: BP 154/88
[2018-03-11 00:18] VITALS: BP 163/79
[2018-03-11 04:07] VITALS: BP 157/82
[2018-03-11 10:10] VITALS: BP 136/75
[2018-03-11 11:17] VITALS: BP 164/83
[2018-03-11 13:39] LABS: HEMATOCRIT 30.8 % (38.0-50.0); HEMOGLOBIN 9.6 G/DL (12.5-16.6); MCH 26.9 PG (29.0-34.0); MCHC 31.2 G/DL (30.0-36.0); MCV 86.3 FL (86-99); PLATELET COUNT 255 K/uL (156-360); RBC DIS.WIDTH-CV 16.9 % (11.8-14.6); RBC DIS.WIDTH-SD 52.6 % (39-53); RED BLOOD COUNT 3.57 M/uL (4.00-5.50); WHITE BLOOD COUNT 5.9 K/uL (4.1-10.2)
[2018-03-11] MEDS ORDERED: LACTULOSE10 GM/151 PO (13:55)
[2018-03-11 13:56] LABS: CHLORIDE 97 MEQ/L (99-109); POTASSIUM 4.8 MEQ/L (3.7-5.4); SODIUM 136 MEQ/L (136-147)
[2018-03-11] MEDS ORDERED: FLUOXETINE HCL40 MG PO (13:57)
[2018-03-11] MEDS ORDERED: RENAL-VITE TAB0.8 MG PO (13:57)
[2018-03-11] MEDS ORDERED: BUPROPION HCL150 M2 PO (13:58)
[2018-03-11 14:02] LABS: GFR ESTIMATE (CALCULATED) 9 mL/min/ (58.99-99999); GLUCOSE 92 mg/dL (70-99); UREA NITROGEN (BUN) 49 mg/dL (9-23)
[2018-03-11 14:03] LABS: CREATININE 8.5 MG/DL (0.6-1.3)
[2018-03-11] MEDS ORDERED: APRESOLINE25 MG PO (15:25)
[2018-03-11] MEDS ORDERED: MOBIC7.5 MG PO (15:26)
[2018-03-11 15:35] VITALS: BP 172/96
== END 2018-03-11 17:11 | disposition home or self-care (01) ==
LOC: EME → EDBD 23:47 → EME 23:47 → 4SOUTH 03-10 01:57 → EDOF 03-10 01:57 → ENRESERV 03-10 02:24 → 4SOUTH 03-10 05:10
PROVIDERS: Emergency Medicine; Hospitalist; Nurse Practitioner Family; Physician Assistant Medical
PROC: 5A1D70Z Performance of Urinary Filtration, Intermittent, Less than 6 Hours Per Day (ICD-10-PCS; principal; 2018-03-10)
DX: M46.1 Sacroiliitis, not elsewhere classified (principal); S73.101A Unspecified sprain of right hip, initial encounter; M25.551 Pain in right hip; R26.2 Difficulty in walking, not elsewhere classified; K59.00 Constipation, unspecified; I12.0 Hypertensive chronic kidney disease with stage 5 chronic kidney disease or end stage renal disease; N18.6 End stage renal disease; Z99.2 Dependence on renal dialysis; E11.22 Type 2 diabetes mellitus with diabetic chronic kidney disease; G47.33 Obstructive sleep apnea (adult) (pediatric); I42.9 Cardiomyopathy, unspecified; R60.0 Localized edema; E83.39 Other disorders of phosphorus metabolism; Z79.4 Long term (current) use of insulin; E66.01 Morbid (severe) obesity due to excess calories; Z68.41 Body mass index [BMI] 40.0-44.9, adult; G89.4 Chronic pain syndrome; D63.8 Anemia in other chronic diseases classified elsewhere; E11.42 Type 2 diabetes mellitus with diabetic polyneuropathy; E78.5 Hyperlipidemia, unspecified; N40.0 Benign prostatic hyperplasia without lower urinary tract symptoms; Z91.19 Patient's noncompliance with other medical treatment and regimen; Z79.02 Long term (current) use of antithrombotics/antiplatelets; Z82.61 Family history of arthritis; Y93.01 Activity, walking, marching and hiking; Y92.9 Unspecified place or not applicable; Z98.890 Other specified postprocedural states; Z88.8 Allergy status to other drugs, medicaments and biological substances
CPT/HCPCS: 71045; 72192; 74176; 80048; 82948; 84484; 85027; 93005; 99281; 99285; G0257; G0378; J0881; J1170; J1644; J3010

== ENCOUNTER → 2018-05-13 | Outpatient (CLI) | payer OTHER ==
[~2018-05-13] MED LIST changes: +BUPROPION HCL150 M2 PO; +LACTULOSE10 GM/151 PO; +MOBIC7.5 MG PO; +OXYCODONE HCL20 M1 PO; +RENA-VITE RX T1 EACH PO; +RENAL-VITE TAB0.8 MG PO; +ZYLOPRIM100 MG PO
== END | disposition home or self-care (01) ==
LOC: AMB 07:37
PROC: 0DBK8ZX Excision of Ascending Colon, Via Natural or Artificial Opening Endoscopic, Diagnostic (ICD-10-PCS; principal; 2018-05-13)
DX: Z12.11 Encounter for screening for malignant neoplasm of colon (principal); D12.2 Benign neoplasm of ascending colon; I12.0 Hypertensive chronic kidney disease with stage 5 chronic kidney disease or end stage renal disease; E11.22 Type 2 diabetes mellitus with diabetic chronic kidney disease; E11.40 Type 2 diabetes mellitus with diabetic neuropathy, unspecified; N18.6 End stage renal disease; Z99.2 Dependence on renal dialysis; Z86.73 Personal history of transient ischemic attack (TIA), and cerebral infarction without residual deficits; K21.9 Gastro-esophageal reflux disease without esophagitis; I44.0 Atrioventricular block, first degree; Z79.02 Long term (current) use of antithrombotics/antiplatelets; Z88.8 Allergy status to other drugs, medicaments and biological substances
CPT/HCPCS: 88305; J0360